=== PATIENT | male | born 1970 | race Caucasian/White ===

== ENCOUNTER 2024-07-27 17:52 | Emergency (ER) | payer SELFPAY ==
[~2024-07-27] VITALS: Ht 190.5 cm; Wt 73.8 kg
[2024-07-27 17:54] VITALS: BP 120/70; PULSE 119; RESP 17; TEMP 98.3; O2SAT 99
[2024-07-27] MEDS ORDERED: RALT400T PO (18:29)
[2024-07-27] MEDS ORDERED: EMTR1TAB PO (18:29)
[2024-07-27] MEDS ORDERED: CEPH-585 PO (18:32)
[2024-07-27] MEDS ORDERED: SULF1TAB49 PO (18:32)
[2024-07-27 18:54] LABS: ALBUMIN 3.8 G/DL (3.4-5.0); ANION GAP 10 (8-16); BLOOD UREA NITROGEN 14 MG/DL (7-18); BUN/CREATININE RATIO 13.3 (10.0-20.0); CHLORIDE 103 MMOL/L (99-107); CREATININE 1.05 MG/DL (0.60-1.10); GLUCOSE 112 MG/DL (70-104); POTASSIUM 3.5 MMOL/L (3.5-5.1); SODIUM 138 MMOL/L (135-145); TOTAL CARBON DIOXIDE 25.4 MMOL/L (24-32); eCRCL 83 ML/MIN; eGFR 73 ML/MIN
[2024-07-27] MEDS: sulfamethoxazole/trimethoprim DS (800/160mg) tablet PO ONE (18:58)
[2024-07-27] MEDS: cephalexin 250mg capsule PO ONE (18:58)
[2024-07-27] MEDS: emtricitabine/tenofovir 200mg/300mg tablet PO STA (18:59)
[2024-07-27 19:20] LABS: HIV ANTIBODY 1&2 RAPID NON-REACTIVE (Neg)
== END 2024-07-27 19:11 | disposition home or self-care (01) ==
LOC: ER 17:54
DX: S61.231A Puncture wound without foreign body of left index finger without damage to nail, initial encounter (principal); L08.9 Local infection of the skin and subcutaneous tissue, unspecified; W46.0XXA Contact with hypodermic needle, initial encounter; Y93.89 Activity, other specified; Y92.89 Other specified places as the place of occurrence of the external cause; Y99.0 Civilian activity done for income or pay
CPT/HCPCS: 36415; 80048; 86703; 86704; 86705; 86706; 99284

== ENCOUNTER 2024-10-01 04:49 | Emergency (ER) | payer MEDICAID ==
[~2024-10-01] VITALS: Ht 190.5 cm; Wt 85.6 kg
[~2024-10-01 04:49] MED LIST: EMTR1TAB PO; KEP500T PO; RALT400T PO
[2024-10-01 04:54] VITALS: BP 143/95; PULSE 122; TEMP 98.5; O2SAT 97
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
[2024-10-01 05:39] LABS: URINE AMPHETAMINE SCREEN POSITIVE (Neg); URINE BARBITUATE SCREEN NEGATIVE (Neg); URINE BENZODIAZEPINES SCREEN NEGATIVE (Neg); URINE CANNABINOID SCREEN POSITIVE (Neg); URINE COCAINE SCREEN NEGATIVE (Neg); URINE METHADONE SCREEN NEGATIVE (Neg); URINE OPIATE SCREEN NEGATIVE (Neg); URINE PHENCYCLIDINE SCREEN NEGATIVE (Neg)
[2024-10-01] MEDS ORDERED: NALO4SPR BOTHNARES (05:40)
[2024-10-01 05:53] VITALS: RESP 16
[2024-10-01] MEDS: ondansetron/PF 4mg/2ml inj IV ONE (05:57)
--- NOTE | 2024-10-01 06:46 | ELECTROCARDIOGRAPH REPORT ---
[facility] Test Date: 2024-10-01 Test Time: 05:03:32 Pat Name: KAROLINA ELENA Department: EMERGENCY ROOM Room: Gender: M [employer]crete Buildings [employer]: : 1970 Requested By: MAYO TATE Order Number: [id number] Reading MD: Dr. Ray Heredia Measurements Intervals [place] Rate: 124 P: 43 WA: 143 QRS: 49 QRSD: 79 T: 39 QT: 315 QTc: 453 Interpretive Statements Atrial-paced complexes Probable anteroseptal infarct, old Electronically Signed On 10-01-2024 9:13:[address] Ray Heredia Please click the below link to view image of tracing.
== END 2024-10-01 06:01 | disposition home or self-care (01) ==
LOC: ER 04:50
DX: T50.7X1A Poisoning by analeptics and opioid receptor antagonists, accidental (unintentional), initial encounter (principal); Z79.899 Other long term (current) drug therapy; Y92.89 Other specified places as the place of occurrence of the external cause
CPT/HCPCS: 80305; 93005; 99284

== ENCOUNTER 2024-10-22 20:36 | Emergency (ER) | payer MEDICAID ==
[~2024-10-22] VITALS: Ht 190.5 cm; Wt 93.6 kg
[~2024-10-22 20:36] MED LIST changes: +NALO4SPR BOTHNARES
[2024-10-22 20:37] VITALS: BP 145/91; PULSE 98; TEMP 98.5; O2SAT 97
--- NOTE | 2024-10-22 22:02 | Physician Documentation ---
History of Present Illness ~ Chief Complaint: Neck pain Stated Complaint: NECK PAIN Time Seen by MD: 20:54 Primary Medical Doctor: damion Cohen Patient is seen today with complaints of worsening neck pain acute on chronic neck pain. Patient does admit to fusion of multiple cervical vertebrae as well as surgical treatment of severe spinal stenosis of the cervical area. Patient states he is having significant decreased range of motion of his neck as well as neck pain but denies any numbness or tingling of his upper or lower extremities. Patient denies any saddle anesthesia or changes in bowel or bladder habits. Patient has no other concern or complaint at this time. Medication Reconciliation Allergies: Coded Allergies: No Known Allergies (Unverified , 10/01/24) Scheduled Emtricitabine/Tenofovir (Truvada 200 mg-300 mg Tablet), 1 TAB PO DAILY Levetiracetam (Keppra), 1 TAB PO Q12H Meloxicam (Meloxicam), 1 TAB PO DAILY Naloxone HCl (Narcan), 1 SPRAYS BOTHNARES ONCE Raltegravir Potassium (Isentress tablet), 1 TAB PO Q12H Past Medical History Past Medical History: No Pertinent History Past Surgical History: noncontributory Drug Use: none Lives In: Home Physical Exam Vital Signs: Temperature: 98.5, Source: Temporal, Heart Rate: 98, Respiratory Rate: 16, BP: 145/91, Pulse Oximetry: 97, Weight: 93.640 Oxygen Flow Rate: 0 Progress Results/Orders Results/Orders Orders - WEI CASANOVA [facility] Cervical Spine [facility] (10/22/24 22:15) Completed Orders - WEI CASANOVA [facility] Cervical Spine [facility] (10/22/24 22:15) Ketorolac Trometh 30mg/Ml Vial (Toradol (10/22/24 21:59) Medications Received in ER Medications (Trade) Dose Ordered Sig/Saurabh Route PRN Reason Start Time Stop Time Status Last Admin Dose Admin (Toradol inj. 30mg/ml) 30 mg ONCE STAT IM 10/22/24 21:59 10/22/24 22:02 DC 10/22/24 22:07 30 MG Vital Signs 10/22/24 10/22/24 20:37 22:07 Temp 98.5 Pulse 98 Resp 16 16 B/P (MAP) 145/91 Pulse Ox 97 O2 Flow Rate 0 EKG/XRAY/CT/US/VASC/MRI Bone/Soft Tissue X-Ray (Spine) : Additional Comment DIAGNOSTIC RADIOLOGY Patient: KAROLINA ELENA Medical Record: [id number] [facility] : 1970, Age: 54 Sex: Male Location: ER Patient Status: REG ER Service Date/Time: 10/22/242214 Ordering Physician: WEI CASANOVA PAC Exam: CERVICAL SPINE LTD EXAM: DI CERVICAL SPINE LTD INDICATION: neck pain COMPARISON: None TECHNIQUE: Two views of the cervical spine were obtained. Findings: Combined anterior and posterior approach disc ectomy infusion involving the entirety of the cervical spine with the parallel marilee posterior fusion component extending into the upper thoracic spine. There is osseus bridging from C3-C7. There is no evidence of hardware complication. There is no prevertebral soft tissue swelling. Impression: 1. C2 to upper thoracic spine combined anterior and posterior fusion without evidence of hardware complication. Electronically Signed by:BAN MORATAYA MD Date & Time: 10/22/242257 Dictated by: BAN MORATAYA MD Dictation date and time: 10/22/242257 Primary Care Provider: NO PRIMARY CARE PROVIDER cc: WEI CASANOVA PAC ~ Medical Decision Making Findings Patient is seen today with complaints of worsening neck pain acute on chronic neck pain. Patient does admit to fusion of multiple cervical vertebrae as well as surgical treatment of severe spinal stenosis of the cervical area. Patient states he is having significant decreased range of motion of his neck as well as neck pain but denies any numbness or tingling of his upper or lower extremities. Patient denies any saddle anesthesia or changes in bowel or bladder habits. Patient has no other concern or complaint at this time. Patient did have x-ray of cervical spine done today that showed no sign of complication of the orthopedic hardware in his cervical spine. Patient was given Toradol shot in the ED today as well as prescription for meloxicam 15 mg one tab once a day to be taken with food and do not take any ibuprofen or any other NSAID while taking meloxicam. Patient will follow up with primary care for referral to orthopedic regional telecommunications specialist for further eval and treatment. Departure Disposition: HOME / SELF CARE / HOMELESS Impression: Primary Impression: Neck pain Condition: Improved Discharge Instructions: Cervical Sprain Additional Instructions: Patient did have x-ray of cervical spine done today that showed no sign of complication of the orthopedic hardware in his cervical spine. Patient was given Toradol shot in the ED today as well as prescription for meloxicam 15 mg one tab once a day to be taken with food and do not take any ibuprofen or any other NSAID while taking meloxicam. Patient will follow up with primary care for referral to orthopedic regional telecommunications specialist for further eval and treatment. Patient is okay to take Tylenol 1000 mg by mouth three to 4 times a day as needed for pain in addition to the meloxicam 15 mg once a day. Referrals: NO PRIMARY CARE PROVIDER (PCP) Prescriptions Meloxicam (Meloxicam) 15 Mg Tablet 1 TAB PO DAILY for 30 Days, #30 TAB 0 Refills Prov: WEI CASANOVA 10/22/24 Signature Scribe Signature: No scribe Attestation: No scribe WEI CASANOVA Oct 22, 2024 22:02
[2024-10-22 22:07] VITALS: RESP 16
[2024-10-22] MEDS: ketorolac trometh 30MG/ML vial 30 MG/ML VIAL IM STA (22:07)
--- NOTE | 2024-10-22 23:01 | RADIOLOGY REPORT ---
EXAM: DI CERVICAL SPINE LTD INDICATION: neck pain COMPARISON: None TECHNIQUE: Two views of the cervical spine were obtained. Findings: Combined anterior and posterior approach disc ectomy infusion involving the entirety of the cervical spine with the parallel marilee posterior fusion component extending into the upper thoracic spine. There is osseus bridging from C3-C7. There is no evidence of hardware complication. There is no prevertebral soft tissue swelling. Impression: 1. C2 to upper thoracic spine combined anterior and posterior fusion without evidence of hardware com plication.
[2024-10-22] MEDS ORDERED: MELO-102 PO (23:08)
== END 2024-10-22 23:34 | disposition home or self-care (01) ==
LOC: ER 20:37
DX: G89.29 Other chronic pain (principal); M54.2 Cervicalgia; Z79.899 Other long term (current) drug therapy
CPT/HCPCS: 72040; 96372; 99283; J1885

== ENCOUNTER 2024-10-25 12:42 | Emergency (ER) | payer MEDICAID ==
[~2024-10-25] VITALS: Ht 182.9 cm; Wt 95.2 kg
[~2024-10-25 12:42] MED LIST changes: +MELO-102 PO
[2024-10-25 12:44] VITALS: BP 147/92; PULSE 101; RESP 16; TEMP 98; O2SAT 98
[2024-10-25] MEDS: dexamethasone sod phosphate 10mg/ml inj IM STA (13:06)
--- NOTE | 2024-10-25 13:18 | Physician Documentation ---
History of Present Illness ~ Chief Complaint: Neck pain Stated Complaint: NECK PAIN Time Seen by MD: 12:48 OK to notify your PCP?: Yes Primary Medical Doctor: damion ponce Source: patient Mode of Arrival: POV Exam Limitations: no limitations HPI 54-year-old male who is here with neck pain which he states has been an ongoing issue now for quite some time but is getting progressively more intolerable. He has a multilevel cervical fusion and has had recent x-rays and imaging studies but states that he is hoping that he can get an expedited referral to pain management by coming to the ER today. He was seen in the ER within the last week and given an injection of Toradol and a prescription for meloxicam but states the meloxicam has not been helping. Pain is all localized to the right upper aspect of his cervical spine and he states radiates into the back of his head giving him a headache. No pain into his extremities, weakness, numbness or tingling. No clumsiness in his extremities, urinary retention or bowel or bladder incontinence. Medication Reconciliation Allergies: Coded Allergies: No Known Allergies (Unverified , 10/01/24) Scheduled Emtricitabine/Tenofovir (Truvada 200 mg-300 mg Tablet), 1 TAB PO DAILY Levetiracetam (Keppra), 1 TAB PO Q12H Meloxicam (Meloxicam), 1 TAB PO DAILY Naloxone HCl (Narcan), 1 SPRAYS BOTHNARES ONCE Raltegravir Potassium (Isentress tablet), 1 TAB PO Q12H Past Medical History Past Medical History: No Pertinent History Past Surgical History: noncontributory Drug Use: none Lives In: Home Review of Systems All Other Systems at this time: Reviewed and Negative Physical Exam Vital Signs: Temperature: 98.0, Source: Temporal, Heart Rate: 101, Respiratory Rate: 16, BP: 147/92, Pulse Oximetry: 98, Weight: 95.200 Oxygen Flow Rate: 0 Physical Exam GENERAL: Alert, no acute distress. HEENT: NCAT, EOMI, PERRL. NECK: Supple, trachea midline. CARDIAC: Regular rate and rhythm, no murmurs, rubs, or gallops. Equal distal pulses. No lower extremity edema, cap refill less than 2 seconds. RESPIRATORY: Equal breath sounds, clear to auscultation bilaterally, no respiratory distress. GASTROINTESTINAL: Non distended, soft, nontender, No guarding or rebound. MUSCULOSKELETAL: Normal range of motion, nontender, no swelling. Normal gait. SPINE: VERTICAL SCAR OVER CERVICAL SPINE TTP OVER PARASPINAL MUSCLES OF CERVICAL SPINE ON THE RIGHT, NO MIDLINE TTP. NEUROLOGICAL: Awake, alert, and oriented x 3. SKIN: Warm/dry, no pallor, no rash. PSYCH: Alert and appropriate. Affect congruent with mood. Speech is clear. Good eye contact. Progress Results/Orders Results/Orders Completed Orders - SALVADOR SHELTON Dexamethasone Inj (Decadron 10mg/Ml Inj) (10/25/24 12:59) Methyl Salicylate/Menthol Crm (Bengay Cr (10/25/24 13:00) Medications Received in ER Medications (Trade) Dose Ordered Sig/Saurabh Route PRN Reason Start Time Stop Time Status Last Admin Dose Admin (Decadron 10mg/ ml inj) 10 mg ONCE STAT IM 10/25/24 12:59 10/25/24 13:01 DC 10/25/24 13:06 10 MG (Bengay cream) 1 applic STAT ONCE TP 10/25/24 13:00 10/25/24 13:01 DC 10/25/24 13:17 1 APPLIC Vital Signs 10/25/24 12:44 Temp 98.0 Pulse 101 Resp 16 B/P (MAP) 147/92 Pulse Ox 98 O2 Flow Rate 0 Medical Decision Making Differential Dx:Considerations: Include: Cervical muscle spasm, Discitis, DJD, Meningitis, Thyroiditis, Torticollis, Vertebral artery dissect. Additional Comment THERE ARE NO NEUROLOGICAL SYMPTOMS SUCH CLUMSINESS, WEAKNESS, LOSS OF BOWEL OR BLADDER CONTROL. THERE ARE NO SYMPTOMS THAT SUPPORT THAT THERE IS AN EMERGENT NEUROSURGICAL ISSUE GOING ON AT THIS TIME. Departure Time of Disposition: 13:16 Disposition: 01 HOME / SELF CARE / HOMELESS Impression: Primary Impression: Neck pain Condition: Stable Discharge Instructions: General Discharge Instructions Additional Instructions: WE GAVE YOU A STEROID INJECTION HERE SINCE THE NSAIDS HAVE NOT BEEN HELPING NEXT STEP IS TO SEE YOUR PCP ABOUT REFERRAL TO PAIN MANAGEMENT THERE IS NOT AN INDICATION FOR SURGICAL ISSUE YES Referrals: NO PRIMARY CARE PROVIDER (PCP) Education Educated: Patient Educated regarding: diagnosis, treatment, need for follow up Signature Scribe Signature: X Attestation: SALVADOR DAS Oct 25, 2024 13:18
== END 2024-10-25 14:01 | disposition home or self-care (01) ==
LOC: ER 12:43
DX: M54.2 Cervicalgia (principal); Z79.899 Other long term (current) drug therapy
CPT/HCPCS: 96372; 99283; J1100